=== PATIENT | male | born 1980 | race Caucasian/White ===

== ENCOUNTER → 2016-12-19 | Outpatient (CLI) | payer BC ==
[2016-12-19 13:50] LABS: SEMEN TIME OF COLLECTION 805
[2016-12-19 13:51] LABS: DAYS OF ABSTINENCE 7; METHOD OF COLLECTION MASTURBATION; SEMEN COLOR YELLOW-GRAY (GRY/GRYWHTE); SEMEN VOLUME 3.4 ML (>1.5); TYPE OF SPECIMEN CONTAINER STERILE CUP
== END | disposition home or self-care (01) ==
LOC: C.LAB 08:59
PROVIDERS: ATTEND Obstetrics & Gynecology
DX: Z31.41 Encounter for fertility testing (principal)